=== PATIENT | female | born 1975 | race Caucasian/White ===

== ENCOUNTER 2020-04-16 15:18 | Emergency (ER) | payer SELFPAY ==
[2020-04-16 15:33] VITALS: BMI 31.5
[2020-04-16] MEDS ORDERED: SODIUM CHLORIDE 0.9% 500 ML INFUS.BAG IV ONE (18:05)
[2020-04-16] MEDS ORDERED: ACETAMINOPHEN 500 MG TABLET (FP) PO ONE (18:05)
[2020-04-16] MEDS ORDERED: MAG HYDROX/AL HYDROX/SIMETH 30 ML UNIT-DOSE CUP PO ONE (18:05)
[2020-04-16] MEDS ORDERED: FAMOTIDINE 20 MG/50 ML IVPB 20 MG/50 ML MG IVPB ONE ×2 (18:05→20:18)
[2020-04-16 18:41] LABS: BASO % 0.6 % (0-2.0); EOS % 0.8 % (0-4.5); HEMATOCRIT 38.6 % (32.4-45.2); HEMOGLOBIN 13.1 GM/dL (10.7-15.3); LYMPH % 40.2 % (8-40); MCH 29.1 pg (25.7-33.7); MCHC 33.9 g/dl (32.0-36.0); MEAN CELL VOLUME 85.6 fl (80-96); MEAN PLT VOLUME 8.4 fl (7.5-11.1); MONO % 6.9 % (3.8-10.2); NEUT % 51.5 % (42.8-82.8); PLATELET COUNT 313 K/MM3 (134-434); RBC 4.51 M/mm3 (3.60-5.2); RDW 14.6 % (11.6-15.6); WHITE BLOOD COUNT 5.5 K/mm3 (4.0-10.0)
[2020-04-16 19:07] LABS: CHLORIDE 106 mmol/L (98-107); POTASSIUM 4.3 mmol/L (3.5-5.1); SODIUM 139 mmol/L (136-145)
[2020-04-16 19:10] LABS: BLOOD UREA NITROGEN 9.4 mg/dL (7-18); CALCIUM 9.5 mg/dL (8.5-10.1)
[2020-04-16 19:11] LABS: ALBUMIN 3.9 g/dl (3.4-5.0); ANION GAP 6 MMOL/L (8-16); CO2 27 mmol/L (21-32); GLUCOSE,RANDOM 80 mg/dL (74-106); LIPASE 105 U/L (73-393)
[2020-04-16 19:13] LABS: CREATININE 0.6 mg/dL (0.55-1.3)
[2020-04-16 19:14] LABS: SGOT/AST 11 U/L (15-37); SGPT/ALT 22 U/L (13-61)
[2020-04-16 19:15] LABS: BILIRUBIN,TOTAL 0.6 mg/dL (0.2-1); TOT PROT 7.7 g/dl (6.4-8.2)
[2020-04-16 19:16] LABS: ALK PHOS 99 U/L (45-117)
[2020-04-16] MEDS ORDERED: ACETAMINOPHEN 325 MG TABLET (FP) ONE (20:18)
[2020-04-16] MEDS ORDERED: MAG HYDROX/AL HYDROX/SIMETH 30 ML UNIT-DOSE CUP ONE (20:18)
[2020-04-16] MEDS ORDERED: LIDOCAINE 5% TOPICAL PATCH TP ONE (20:59)
[2020-04-16] MEDS ORDERED: LIDOCAINE 5% TOPICAL PATCH ONE (21:14)
[2020-04-17] MEDS ORDERED: KETOROLAC TROMETHAMINE 15 MG/ML VIAL IVPUSH ONE (00:53)
[2020-04-17] MEDS ORDERED: KETOROLAC TROMETHAMINE 15 MG/ML VIAL ONE (01:34)
[2020-04-17 03:39] VITALS: BP 115/68; PULSE 61; TEMP 98.3
[2020-04-17] MEDS ORDERED: LIDOCAINE PATCH REMOVAL MC SCH (09:00)
== END 2020-04-17 04:01 | disposition home or self-care (01) ==
LOC: JER 15:18
PROC: 3E033NZ Introduction of Analgesics, Hypnotics, Sedatives into Peripheral Vein, Percutaneous Approach (ICD-10-PCS; principal; 2020-04-16)
PROC: 3E0333Z Introduction of Anti-inflammatory into Peripheral Vein, Percutaneous Approach (ICD-10-PCS; 2020-04-17)
DX: R10.13 Epigastric pain (principal)
CPT/HCPCS: 36415; 71275-TC; 74177-TC; 76705-TC; 80053; 83690; 84484; 84703; 85025; 93005; 93010; 99285-25

== ENCOUNTER 2021-06-20 20:20 | Emergency (ER) | payer OTHER ==
[2021-06-20 20:27] VITALS: BP 124/69; PULSE 74; TEMP 98; BMI 25.4
[2021-06-21] MEDS ORDERED: IBUPROFEN 400 MG TABLET (FP) PO ONE ×2 (00:07→00:55)
[2021-06-21] MEDS ORDERED: SODIUM CHLORIDE 0.9% 500 ML INFUS.BAG IV ONE (00:16)
[2021-06-21 01:00] LABS: BASO % 0.4 % (0-2.0); EOS % 1.9 % (0-4.5); HEMATOCRIT 38.8 % (32.4-45.2); HEMOGLOBIN 12.6 GM/dL (10.7-15.3); LYMPH % 41.8 % (8-40); MCHC 32.5 g/dl (32.0-36.0); MEAN PLT VOLUME 8.3 fl (7.5-11.1); MONO % 7.7 % (3.8-10.2); NEUT % 48.2 % (42.8-82.8); PLATELET COUNT 387 10^3/uL (134-434); RBC 4.67 M/mm3 (3.60-5.2); RDW 15.6 % (11.6-15.6); WHITE BLOOD COUNT 7.6 K/mm3 (4.0-10.0)
[2021-06-21 01:06] LABS: EPI CELLS >36 /uL (0-25.1); HYALINE CASTS 9 /uL (0-3.1); URINE APPEARANCE CLOUDY; URINE BILIRUBIN 3+ (NEGATIVE); URINE COLOR RED; URINE GLUCOSE (UA) NEGATIVE (NEGATIVE); URINE KETONE NEGATIVE (NEGATIVE); URINE LEUK ESTERASE 3+ (NEGATIVE); URINE NITRITE POSITIVE (NEGATIVE); URINE PROTEIN 3+ (NEGATIVE); URINE RBC 19768 /uL (0-23.9); URINE UROBILINOGEN 0.2 mg/dL (0.2-1.0); URINE WBC 247 /uL (0-25.8)
[2021-06-21 01:07] LABS: INR 1.03 (0.83-1.09); PROTHROMBIN TIME (PATIENT) 11.8 SEC (9.7-13.0)
[2021-06-21 01:09] LABS: ACTIVATED PTT 29.5 SECONDS (25.2-36.5)
[2021-06-21 01:18] LABS: CHLORIDE 105 mmol/L (98-107); SODIUM 137 mmol/L (136-145)
[2021-06-21] MEDS ORDERED: CEPHALEXIN MONOHYDRATE 500 MG CAPSULE (UD) PO ONE (01:21)
[2021-06-21 01:23] LABS: ALBUMIN 3.9 g/dl (3.4-5.0); ANION GAP 6 MMOL/L (8-16); BLOOD UREA NITROGEN 11.2 mg/dL (7-18); CALCIUM 9.8 mg/dL (8.5-10.1); CO2 25 mmol/L (21-32); GLUCOSE,RANDOM 99 mg/dL (74-106)
[2021-06-21 01:24] LABS: LIPASE 131 U/L (73-393)
[2021-06-21 01:26] LABS: CREATININE 0.6 mg/dL (0.55-1.3); SGOT/AST 17 U/L (15-37); SGPT/ALT 21 U/L (13-61)
[2021-06-21 01:28] LABS: BILIRUBIN,TOTAL 0.3 mg/dL (0.2-1); TOT PROT 7.5 g/dl (6.4-8.2)
[2021-06-21 01:29] LABS: ALK PHOS 116 U/L (45-117)
[2021-06-21] MEDS ORDERED: CEPHALEXIN MONOHYDRATE 500 MG CAPSULE (UD) ONE (01:36)
== END 2021-06-21 02:31 | disposition home or self-care (01) ==
LOC: JER 20:20
DX: R10.30 Lower abdominal pain, unspecified (principal); N93.9 Abnormal uterine and vaginal bleeding, unspecified
CPT/HCPCS: 36415; 76830-TC; 80053; 81003; 83690; 84702; 84703; 85025; 85610; 85730; 86850; 86900; 86901; 87086; 93005; 93010; 99285-25